=== PATIENT | male | born 1975 | race Caucasian/White ===

== ENCOUNTER → 2024-04-28 12:22 | Outpatient (REF) | payer OTHER, SELFPAY | LOC: HWRAD 12:22 | PROVIDERS: ATTENDING PHYSICIAN Family Medicine | DX: R07.9 Chest pain, unspecified (principal) | CPT/HCPCS: 71275; Q9967 ==

== ENCOUNTER → 2024-05-14 16:41 | Outpatient (REF) | payer OTHER, SELFPAY | LOC: RAD 16:41 | PROVIDERS: FAMILY PHYSICIAN Family Medicine | DX: M79.661 Pain in right lower leg (principal) | CPT/HCPCS: 93971 ==

== ENCOUNTER → 2024-05-26 12:52 | Outpatient (REF) | payer OTHER, SELFPAY | LOC: RCS 12:52 | PROVIDERS: ATTENDING PHYSICIAN Nurse Practitioner Family; FAMILY PHYSICIAN Family Medicine | DX: R00.0 Tachycardia, unspecified (principal) | CPT/HCPCS: 93225; 93226 ==

== ENCOUNTER → 2024-09-08 08:06 | Outpatient (REF) | payer OTHER, SELFPAY | LOC: HWRCS 08:06 | PROVIDERS: ATTENDING PHYSICIAN Internal Medicine Cardiovascular Disease; FAMILY PHYSICIAN Family Medicine | DX: I47.10 Supraventricular tachycardia, unspecified (principal) | CPT/HCPCS: 93306 ==